=== PATIENT | male | born 1955 | race Caucasian/White ===

== ENCOUNTER 2018-02-13 10:00 | Outpatient (RCR) | payer MEDICAID, SELFPAY ==
--- NOTE | 2018-01-15 08:54 | AT_ITS ---
01/15/18 TPx1 Complete (R) shoulder girdle open and closed chain stabilization efforts when in aquatic environment see flow sheet for specifics. Pt requires remarkable amount of cueing for proper lower trap activation to reduce shoulder hiking and proper scap position. Majority of his exercises are modified today to encourage proper scap stabilization and motor control. Total Time: 45 minutes Direct Time: 20 minutes with pt being able to complete majority of his exercises with minimal supervision once instructed in proper technique.
--- NOTE | 2018-01-16 14:13 | PTTR_ITS ---
DATE: 01/16/18 SUBJECTIVE: Georgette apologizes for missing yesterday's appointment. States he has been compliant with his HEP, and he has also joined the [facility] to [facility] 6 days per week. OBJECTIVE: Has been in an aquatic program. He was instructed in his exercises to be performed independently now that he has joined the [employer]. I test his shoulder movements prior to mobilization, starting in the supine position with scapular jiggles, then external rotation, which continues to be hypo mobile and painful at end range. I can get him close to 60 while he is in the scaption plane today. Then worked on internal rotation and then forward elevation. Performed PNF patterns, PNF #1 through full range with light resistance and then PNF #2 mainly focusing on the lift component. I then place him in prone for rolling and gliding of the humeral head and then work on hyper extension. He does not get much more than 20 to 30 . Then forward elevation with his arm eventually on the plinth while he rests his forehead on his left forearm. Performed AA forward elevation, mainly assistive. This causes some supra humeral discomfort. I have him incorporate more active movements as tolerated. I then placed him in the closed pack position for flexion, abduction and external rotation while locking his fingers behind his head. Had him abduct and retract while I am apply a gentle posterior stress to the humeral head. to minimize stress to the anterior capsule, subscapularis area. Manual therapy: ([id number]). Direct treatment time: 30 min. He then sees Aleena Kee PTA for therapeutic exercise in the clinic. Refer to his flow sheets. Assessment: Slow but steady progress. Plan: Have Georgette monitor his response to today's session. He will continue to swim and do his other home exercises along with the jazmyne. He has follow up care early next week. Regan Dowell PNisa. DONTE/bishnu
--- NOTE | 2018-01-16 16:12 | PTTR_ITS ---
DATE: 01/16/18 OBJECTIVE: Co-treatment with primary therapist, Regan Dowell PT. Please see his note for specifics. Therapeutic procedures ([id number]). * [X] See flow sheet: Patient completed an open-chain shoulder strengthening and scapular stabilization program, as per flow sheet. * [X] Provided skilled instruction in proper exercise performance * [X] Provided skilled manual cues to facilitate proper muscle recruitment and/or movement pattern * [X] Other: Patient completed the remainder of his ther ex program under application trainer supervision. Direct treatment time: 30 minutes Total treatment time: 40 minutes
--- NOTE | 2018-01-20 11:17 | PTTR_ITS ---
DATE: 01/20/18 SUBJECTIVE: Georgette states he has been working hard in the pool, as well as stretching with the jazmyne and using the arm as much as possible. He is a little sore. OBJECTIVE: Was seen by Juanita Saeed PTA for therapeutic exercises prior to mobilization today. Manual therapy: ([id number]).he is a little more sore than usual. I work with stretching the inferior and posterior capsules and then work on ER, then IR and forward elevation. At end range of forward elevation, I perform deep tissue massage in the teres minor inferior capsule pec region with a slow prolonged stretch, and the PNF a1 and 2 patterns focusing in the L component at end range with D2 and through 3/4 of the range with a D1 pattern. I then have him in the side lying position and have him do some anti-gravity ER with the elbow tucked into the side. This is uncomfortable with end range, as well as his ab/ adduction with the arm at 90 degrees. He is unable to go through the full range due to discomfort. I then have in the prone position and have him dangle the arm , which gives him symptomatic relief. I stretch the anterior capsule with hyperextension while retracting the scapula, and then forward elevation while he is working on the side lying ER and flexion I have him try to work his lower traps to stabilize his scapula. With his shoulder at 90 degrees resting on the plinth with the elbow bent at 90, I have him work on some anti-gravity ER, etc... Direct treatment time: 30 min Total treatment time: 30 min Assessment: Little sore today from all of the activity and stretching, but tolerated it well. Plan: Have him monitor response to today's session. If he is getting more and more uncomfortable, he may have to back off on the intensity and frequency of his program. He has a follow-up appt later in the week. AROLDOW/endy
--- NOTE | 2018-01-20 11:40 | PTTR_ITS ---
DATE: 01/20/18 OBJECTIVE: Co Treatment with PT Regan Dowell Therapeutic procedures ([id number]). * X Provided skilled instruction in proper exercise performance: Pt completed UE strengthening, scapular stabilization, UE ROM, and the UBE for UE strengthening. Direct treatment time: 25 Total treatment time: 30
--- NOTE | 2018-01-22 08:14 | NT_ITS ---
01/22/18 Georgette no showed for todays scheduled appt.
--- NOTE | 2018-01-23 09:56 | PTTR_ITS ---
DATE: 01/23/18 OBJECTIVE: This was a co tx with PT Regan oDwell, please refer to his note for specifics. Therapeutic procedures ([id number]). Pt was seen by me for completion of a therapeutic exercise program consisting of UE strengthening activities, scap stabilization and cardiovascular exercise on the UBE. Pt was able to tolerate a slight increase in his program today but did require tactile and verbal cueing for correction of his mechanics throughout his session. Direct treatment time: 30 minutes Total treatment time: 30 minutes
--- NOTE | 2018-01-23 14:08 | PTTR_ITS ---
DATE: 01/23/18 SUBJECTIVE: Georgette states that he has been compliant with his HEP and been working hard. He biked on the [place] today for approximately 10 miles without problems. OBJECTIVE: Manual therapy: ([id number]). I begin with mobilizing him in the supine position with focus on rotation with the arm abducted at 90* and into the scaption plane. I then work on his IR and then forward elevation. PNF 1-2 patterns alternating isotonics and adding end range lift component on the D1 pattern. In the side lying position working on ER while he is locking his scapula into retraction and inferiorly. He is unable to lift his arm from his side up over head into the side lying position due to pain so we hold on that. I then have him in the prone position working on forward elevation AA having hold it isometrically at end range. Same thing with abduction. Direct treatment time: 30 minutes Total treatment time: 30 minutes and he is seen by Obdulia Saeed PTA and has a follow up appt early next week.
--- NOTE | 2018-01-27 10:00 | PTTR_ITS ---
DATE: 01/27/18 SUBJECTIVE: Georgette states he has been swimming on a regular basis, sometimes up to 4x a week. Feels that the buoyancy of the water helps him move his shoulder better, etc. . . He also continues to work with his pulleys, etc. . . Manual therapy: ([id number]). Treatment today consisted of aggressive mobilization in the supine position starting with ER, then IR and forward elevation. PNF I/II patterns alternating isotonics. In sidelying position consisting of anti-gravity ER and then abduction/adduction. In prone, rolling and gliding the humeral head and the stretching the anterior capsule with hyper extension, then abduction forward elevation AA, then close pack position of flexion/abduction, ER. Direct treatment time: 30 mins Total treatment time: 30 mins, with continued care with Obdulia Saeed PTA for his therex (see her note for specifics) Has a follow up later in the week. DLW/dl
--- NOTE | 2018-01-27 11:15 | PTTR_ITS ---
DATE: 01/27/18 OBJECTIVE: Co Treatment with Regan Dowell Therapeutic procedures (91509m4). * X Provided skilled instruction in proper exercise performance: Pt completed UE strengthening, scapular stabilization ther ex, ROM exercises, and the UBE for 8 min. Pt was able to tolerate a slight increase in his program today. Direct treatment time: 30 Total treatment time: 38
--- NOTE | 2018-01-30 10:30 | PTTR_ITS ---
DATE: 01/30/18 SUBJECTIVE: No new complaints. Manual therapy: ([id number]). Today's session consisted of mobilizing Georgette in supine starting with ER and IR and flexion, PNF 1 and 2 patterns, alternating isotonics, sidelying position with anti-gravity ER while locking in his scapular into retraction, then ab/adduction. His pure GH movement on the R now is approximately 60-65 degrees compared to 90- 100 on the L. He is able to place his R hand at about T12 level when reaching behind his back. Direct treatment time: 30 mins Total treatment time: 30 mins with continued care with Aleena Kee PTA for his Therex. Has a follow up early next week. DLW/dl
--- NOTE | 2018-01-30 11:51 | PTTR_ITS ---
DATE: 01/30/18 OBJECTIVE: Co-treatment with primary therapist, Regan Dowell PT. Please see his note for specifics. Therapeutic procedures ([id number]). * [X] See flow sheet: Patient completed an UE strengthening and scapular stabilization program with focus on improved ROM, as per flow sheet. Patient tolerated a slight progression in his program today, please see flow sheet for modifications made to reps and resistance. * [X] Provided skilled manual cues to facilitate proper muscle recruitment and/or movement pattern. * [X] Other: Patient completed the remainder of his ther ex program via [facility]. Direct treatment time: 30 minutes Total treatment time: 50 minutes
--- NOTE | 2018-02-02 11:30 | PTTR_ITS ---
DATE: 02/02/18 SUBJECTIVE: Georgette feels that he has made steady progress with his shoulder function compared to one month ago. He has intermittent discomfort throughout the R GH joint into the lateral aspect of the proximal humerus with weighted activity, particularly out to the side and overhead, and with end range movements. Manual therapy: ([id number]). Has a follow up appt with Dr. Castro one week from today. He has been attending PT 2x a week over the past 1 month. Prior to that he had been doing some traveling and only able to attend inconsistently. [place] 2 [place] starting in early Feb. ARTICULAR: His active R shoulder motion reveals good initiation of flexion/ abduction and associated with excessive scapular substitution at end range. It is limited to around 105 and 110 degrees, abduction is at 90 degrees, again with scapular substitution. His L thumb is at about the T8 level when reaching behind his back, R thumb 7 below. GH movement on the R is 60-70 degrees, compared to 90-95 on the L. His ER with elbow tucked into his side is approximately 20 degrees R, compared to 70 degrees on the L. AA in supine position with shoulder in scaption plane and abducted at 90 degrees , his ER is 45 degrees compared to 90-100 on the L. His IR is about 75 degrees. He has end range pain with each movement. He tolerates good resistance without pain to elbow flexion and forearm supination as well as ER. Assisted IR is a little weak with some discomfort, scaption/abduction in empty can position is also painful and weak. Session today consisted of his therapeutic exercises along with mobilization. Direct treatment time: 30 mins Total treatment time: 30 mins A: Making slow, but steady progress, not only with his ROM, but functionally. Still has significant limitation within a capsular pattern of flexion/abduction and external greater than internal rotation. P: Continue with his rehab until he heads out [place]. He is going to bring his jazmyne system along with his tubing exercises with him for stretching and strengthening. Has a follow up later in the week. DLW/dl
--- NOTE | 2018-02-02 11:42 | PTTR_ITS ---
DATE: 02/02/18 OBJECTIVE: Co treatment with Pt Regan Dowell Therapeutic procedures (18118a9). * X Provided skilled instruction in proper exercise performance: Pt completed UE strengthening, scapular stabilization ther ex as per flow sheet, and the UBE for cardio. Pt tolerated a slight increase in his program today. Direct treatment time: 30 Total treatment time: 40
--- NOTE | 2018-02-06 10:30 | PTTR_ITS ---
DATE: February 06, 2018 Manual therapy: ([id number]). Today's session consisted of mobilizing him in the supine position starting with ER, then combination of flexion/abduction in scaption plane, PNF I & II patterns alternating isotonics and finishing with IR. Then in sidelying when he externally rotates with his elbow tucked into his side, he is still getting a significant amount of scapular movement. I manually lock this in so he is working strictly at the GH joint. He still has pain when attempting to abduct in this position, so I then have him lie in the prone position with his arm dangling over the edge and have him do some rolling and gliding of the humeral head. I then place his forearm on my thigh so the shoulder is approximately 105-110 degrees and then AA work into forward elevation up to around 145, then have him try and hold this isometrically. Direct treatment time: 30 mins Total treatment time: 30 mins finishing with some Therex in clinic. I issue him a copy of his last note to hand deliver to his surgeon when he attends an appt next week. DLW/travon
--- NOTE | 2018-02-06 11:34 | PTTR_ITS ---
DATE: 02/06/18 OBJECTIVE: Co Treatment with PT Regan Dowell Therapeutic procedures ([id number]). * X Provided skilled instruction in proper exercise performance: Pt completed UE strengthening, scapular stabilization ther ex, and the UBE for cardio. Pt still requires assist with his B.O. shoulder abd due to weakness and compensation. Pt was able to tolerate a slight increase in his program today please see flow sheet for specifics. Direct treatment time: 35 Total treatment time: 45
--- NOTE | 2018-02-10 10:00 | PTTR_ITS ---
DATE: 02/10/18 SUBJECTIVE: Georgette states his appt went fine with Dr. Castro. He was happy with his progress thus far. Georgette is heading out west for 2 months, today is his last visit until then. He is bringing his pulleys for ROM as well as his strengthening exercises for shoulder girdle. I review these with him. Manual therapy: ([id number]). His active flexion/abduction is approximately 105 degrees with scapular substitution. His R thumb is at about the L1 level when reaching behind his back His AAROM in supine position, ER is close to 70 degrees in scaption plane and IR is 75-80 degrees, these are slow cautious movements. His forward elevation is 135-140. His pure GH movement is approximately 60 degrees on the R compared to 90 degrees on the L. I mobilize him in the supine position starting with scapular jiggles, then ER/ IR. Forward elevation, then PNF 1-2 patterns focusing in on the lift component with D2 and through full range on D1. I then work with him in sidelying, prone positions, A/AA. Direct treatment time: 30 mins Total treatment time: 30 mins, then seen by Obdulia Saeed PTA (see her note for specifics) A: Has made slow, but steady progress compared to 4 weeks ago. He still has a way to go though in regards to freeing up the GH joint. He has been compliant with his HEP and hopefully this will continue while he is away. P: Have Georgette continue with his HEP consisting of stretching in the frontal, sagittal planes with his jazmyne, as well as towel for his IR behind his back. S15 scapular stabilization exercises. He will contact me when he returns from his trip. DLW/dl
--- NOTE | 2018-02-10 13:00 | PTTR_ITS ---
DATE: 02/10/18 SUBJECTIVE: Pt reports that he is making progress with his strength and ROM. OBJECTIVE: Co Treatment with PT Regan Dowell Therapeutic procedures ([id number]). * X Provided skilled instruction in proper exercise performance: Pt completed UE strengthening, scapular stabilization ther ex, ROM activities, and the UBE for UE cardio. Pt completed a portion of his session with the wellness with Sophie Boucher Direct treatment time: 30 Total treatment time: 45
--- NOTE | 2018-02-13 11:14 | PTTR_ITS ---
DATE: 02/13/18 OBJECTIVE: Co Treatment with PT Regan Dowell Therapeutic procedures ([id number]). * X Provided skilled instruction in proper exercise performance: Pt completed UE strengthening, scapular stabilization ther ex, UE ROM, and cardio on the UBE. Pt was able to tolerate a slight increase in his program today without difficulty. Pt still requires assist with B.O. shoulder abd. Pt is going on vacation and will not be back till almost fall. Direct treatment time: 30 Total treatment time: 40
--- NOTE | 2018-02-13 13:30 | PTTR_ITS ---
DATE: 02/13/18 SUBJECTIVE: Georgette is in good spirits. Is looking forward to his trip.States that he has his pulleys and tubing packed and ready to use while he is gone. OBJECTIVE: Is heading out for 2 months. He has his HEP. I recently assessed his ROM movements; refer to the note. KX applied to all codes Manual therapy: (97962k6). He shows up late for his appt, so I only have 15 min. to work with him. I focus of mobilization of the shoulder girdle with emphasis on the GH joint in the supine and prone positions, along with PNF 1 and 2 patterns alternating isotonics. He was then seen by Juanita Saeed PTA for his therapeutic exercises. Assessment: Has made steady gains with his ROM and strength and function. Therefore, better function. He will be gone for 8 weeks and he has his home program. Plan: Encourage Georgette to continue with his home program on a daily basis on consisting of AAROM using the jazmyne mechanism and towel, along with strengthening exercises with his tubing and light weights. He will contact us when he returns from his trip. Direct treatment time: 15 min Total treatment time: 15 min DLW/endy
== END 2018-02-13 23:59 | disposition home or self-care (01) ==
LOC: PT 10:00
PROVIDERS: PCP Nurse Practitioner; Referring Provider Nurse Practitioner Family; Visit Provider Nurse Practitioner Family
DX: Z47.1 Aftercare following joint replacement surgery (principal); Z96.611 Presence of right artificial shoulder joint
CPT/HCPCS: 97110; 97140

== ENCOUNTER 2019-03-04 16:06 | Outpatient (CLI) | payer MEDICAID, SELFPAY | END 2019-03-04 16:26 | PROVIDERS: PCP Nurse Practitioner; Visit Provider Urology | DX: R36.1 Hematospermia (principal) | CPT/HCPCS: 36415; 84153 ==

== ENCOUNTER 2019-05-18 14:57 | Outpatient (CLI) | payer MEDICAID, SELFPAY ==
[2019-05-20 10:11] LABS: PSA, Diagnostic 5.1 ng/mL (0.0-4.5)
== END 2019-05-18 15:17 ==
PROVIDERS: PCP Nurse Practitioner; Visit Provider Urology
DX: R36.1 Hematospermia (principal)
CPT/HCPCS: 36415; 84153

== ENCOUNTER 2019-07-01 00:25 | Outpatient (CLI) | payer MEDICAID, SELFPAY ==
--- NOTE | 2019-07-01 12:40 | PROST_PTH ---
PATIENT: Georgette Mcdonald LOC: [facility] U#:[id number] AGE/SX: 64/M ROOM: RE07/01/[address]: Michael Suarez MD : [id number] BED: DIS: 07/01/2019 SPEC #: [id number] RECD: 07/01/19 17:04 STATUS: JOEL RELexii #: [id number] CLAUDETTE: 07/01/19 12:[address]: Michael Suarez DEPT: Surgical Specimen RECD BY: India Wilkins ENTERED: 07/01/19 17:06 SP TYPE: PROST OTHR DR: Rafia Blevins Tissues: 1 - PROSTATE NEEDLE BIOPSY 2 - PROSTATE NEEDLE BIOPSY 3 - PROSTATE NEEDLE BIOPSY 4 - PROSTATE NEEDLE BIOPSY 5 - PROSTATE NEEDLE BIOPSY 6 - PROSTATE NEEDLE BIOPSY 7 - PROSTATE NEEDLE BIOPSY 8 - PROSTATE NEEDLE BIOPSY 9 - PROSTATE NEEDLE BIOPSY 10 - PROSTATE NEEDLE BIOPSY 11 - PROSTATE NEEDLE BIOPSY 12 - PROSTATE NEEDLE BIOPSY Procedures: GROSS AND MICRO LEVEL 4 Comments: [id number]
--- NOTE | 2019-07-01 12:50 | DI.US_ITS ---
EXAM: US PROSTATE BIOPSY CLINICAL HISTORY: ELEVATED PSA, R97.20,HEMATOSPERMIA, ULTRASOUND GUIDED PROSTATE BIOPSY TECHNIQUE: Ultrasound performed using standard protocol. COMPARISON: No exams were available for comparison FINDINGS: Transrectal ultrasound was provided for Dr. Suarez for ultrasound-guided prostate biopsy. Prostate me asured a volume of 74 cc. Please see procedure note for details.
--- NOTE | 2019-07-01 13:24 | ROE_ITS ---
PROCEDURE NOTE DATE OF PROCEDURE July 01, 2019 PREPROCEDURE DIAGNOSIS Elevated PSA. POSTPROCEDURE DIAGNOSES Elevated PSA. PROCEDURE Ultrasound-guided biopsy of the prostate. SURGEON Michael Suarez M.D. ANESTHESIA Local. COMPLICATIONS None. HISTORY This is a 64-year-old gentleman who has a history of persistent hematospermia. He was also found to h ave an elevated PSA of 5.1 ng/ml. He presents now for ultrasound-guided biopsy of the prostate. PROCEDURE The patient was brought to the Radiology Suite on 07/01/2019. He was placed in the left lateral positi on. Transrectal imaging of the prostate was performed using a variable megahertz transducer. The prostate was imaged in transverse and longitudinal planes. The prosthetic volume was approximately 74 cc. The transition zone was markedly enlarged and compress ed the peripheral zone. No specific abnormalities were seen in the peripheral zone. A periprostatic nerve block was performed using 1% lidocaine without epinephrine. A total of 12 late rally directed biopsies were than taken and sent to Pathology for permanent section. Each biopsy was labeled individually. The patient tolerated the procedure well with no complications. He will follow up in one week to juice garcia his surgical pathology.
== END 2019-07-01 00:45 ==
PROVIDERS: PCP Nurse Practitioner; Visit Provider Urology
DX: C61 Malignant neoplasm of prostate (principal); R97.20 Elevated prostate specific antigen [PSA]; N41.1 Chronic prostatitis; R36.1 Hematospermia
CPT/HCPCS: 55700; 76942; 76872; 88305

== ENCOUNTER 2019-08-17 15:41 | Outpatient (CLI) | payer MEDICAID, SELFPAY ==
[2019-08-18 10:23] LABS: PSA, Diagnostic 4.9 ng/mL (0.0-4.5)
== END 2019-08-17 16:01 ==
PROVIDERS: PCP Nurse Practitioner; Visit Provider Urology
DX: C61 Malignant neoplasm of prostate (principal)
CPT/HCPCS: 36415; 84153

== ENCOUNTER 2019-12-27 09:29 | Outpatient (CLI) | payer MEDICAID, SELFPAY ==
[2020-01-01 06:51] LABS: SARS-CoV-2 RNA Undetected (Undetected); SARS-CoV-2 Specimen Source Nasopharynx
== END 2019-12-27 09:49 ==
PROVIDERS: PCP Nurse Practitioner; Visit Provider Nurse Practitioner Family
DX: Z11.59 Encounter for screening for other viral diseases (principal)
CPT/HCPCS: U0003

== ENCOUNTER 2020-05-15 16:29 | Outpatient (REF) | payer MEDICAID, SELFPAY ==
[2020-05-17 13:43] LABS: Patient Race White; SARS-CoV-2 RNA Undetected (Undetected); SARS-CoV-2 Specimen Source Nasal
== END 2020-05-15 16:49 ==
LOC: NCHCN 16:29
PROVIDERS: PCP Nurse Practitioner; Visit Provider Nurse Practitioner Family
DX: Z20.828 Contact with and (suspected) exposure to other viral communicable diseases (principal)
CPT/HCPCS: U0003

== ENCOUNTER 2020-09-15 17:53 | Outpatient (REF) | payer MEDICAID, SELFPAY ==
[2020-09-15 19:55] LABS: Abs Immature Grans 0.01 10^3/uL (0.0-0.06); Absolute Basophil Count 0.05 10^3/uL (0.0-0.2); Absolute Eosinophil Count 0.12 10^3/uL (0.0-0.7); Absolute Lymphocyte Count 2.36 10^3/uL (1.2-3.4); Absolute Monocyte Count 0.42 10^3/uL (0.1-0.8); Absolute Neutrophil Count 3.65 10^3/uL (1.2-6.7); Basophils % 0.8; Eosinophils % 1.8; HCT 39.3 % (40.0-50.0); HGB 12.8 g/dL (13.5-17.5); Immature Grans % 0.2; Lymphocytes % 35.7; MCH 29.8 pg (27.0-33.0); MCHC 32.6 % (32.0-36.0); MCV 91.4 fL (80-95); Monocytes % 6.4; Neutrophils % 55.1; Nucleated RBC 0 %; RDW 13.7 % (11.8-14.1); RDW-SD 46.5 fL; WBC 6.61 10^3/uL (4.4-10.8)
[2020-09-15 20:05] LABS: ALT 26 U/L (16-63); AST 21 U/L (15-37); Albumin 3.9 g/dL (3.4-5.0); Alkaline Phosphatase 61 U/L (46-116); Anion Gap 8.1 mmol/L (3-11); BUN 15 mg/dL (7-18); Bilirubin, Total 0.5 mg/dL (0.2-1.0); CO2 27.9 mmol/L (21.0-32.0); CREATININE 0.9 mg/dL (0.70-1.30); Calcium 9.5 mg/dL (8.5-10.1); Chloride 104 mmol/L (98-107); Glucose 104 mg/dL (74-106); Potassium 4.7 mmol/L (3.5-5.1); Sodium 140 mmol/L (136-145); Total Protein 7.4 g/dL (6.4-8.2)
[2020-09-15 20:22] LABS: Diff Comment PLT Morph Reviewed; RBC Morphology Normal
== END 2020-09-15 17:54 | disposition home or self-care (01) ==
LOC: NCHCN 17:53
PROVIDERS: PCP Nurse Practitioner; Visit Provider Family Medicine
DX: A08.8 Other specified intestinal infections (principal)
CPT/HCPCS: 80053; 85025

== ENCOUNTER 2020-09-16 11:55 | Outpatient (REF) | payer MEDICAID, SELFPAY | END 2020-09-16 11:56 | disposition home or self-care (01) | LOC: NCHCN 11:55 | PROVIDERS: PCP Nurse Practitioner; Visit Provider Family Medicine | DX: A08.8 Other specified intestinal infections (principal) | CPT/HCPCS: 87329; 83630; 87177 ==

== ENCOUNTER 2021-08-01 15:53 | Outpatient (REF) | payer MEDICAID, SELFPAY ==
[2021-08-01 23:13] LABS: PSA, Diagnostic 7.1 ng/mL (0.0-4.5)
== END 2021-08-01 15:54 | disposition home or self-care (01) ==
LOC: LBN 15:53
PROVIDERS: PCP Nurse Practitioner Family; Visit Provider Nurse Practitioner Gerontology
DX: C61 Malignant neoplasm of prostate (principal); R97.20 Elevated prostate specific antigen [PSA]
CPT/HCPCS: 84153

== ENCOUNTER 2021-08-15 00:47 | Outpatient (CLI) | payer MEDICAID, SELFPAY ==
--- NOTE | 2021-08-15 15:18 | DI.RAD_ITS ---
Exam(s) XR HIP RT COMPLETE AP PELVIS EXAM: XR HIP RT COMPLETE AP PELVIS CLINICAL HISTORY: RT LEG PAIN, M79.604 TECHNIQUE: COMPARISON: No exams were available for comparison FINDINGS: Four views were obtained. There is moderate thinning of the cartilaginous joint space of the right h ip. There are moderate marginal osteophytes of femoral head and acetabulum. There are subchondral c ysts of the femoral head and acetabulum and mild subchondral sclerosis of the bones is also noted. Note is also made of some thinning of the cartilaginous joint space of the left hip with mild margina l osteophytes and subchondral sclerosis of the acetabulum. Mild DJD of the SI joints also noted and there are degenerative changes of the lower lumbar spine. IMPRESSION: Moderate to severe DJD right hip. Additional findings as above. RADIATION DOSE DELIVERED: Total DLP
== END 2021-08-15 01:07 ==
PROVIDERS: PCP Nurse Practitioner Family; Visit Provider Nurse Practitioner Family
DX: M16.11 Unilateral primary osteoarthritis, right hip (principal); M79.604 Pain in right leg
CPT/HCPCS: 73502

== ENCOUNTER 2021-08-15 10:20 | Outpatient (REF) | payer MEDICAID, SELFPAY ==
[2021-08-15 14:00] LABS: HGB 13.6 g/dL (13.5-17.5); MCH 29.7 pg (27.0-33.0); MCHC 32.4 % (32.0-36.0); MCV 91.7 fL (80-95); MPV 11.1 fL (8.0-11.0); Platelet Count 256 10^3/uL (130-400); RBC 4.58 10^6/uL (4.36-5.78); RDW 13.4 % (11.8-14.1); RDW-SD 45.8 fL; WBC 8.92 10^3/uL (4.4-10.8)
[2021-08-15 14:26] LABS: ALT 28 U/L (16-63); AST 12 U/L (15-37); Albumin 4.2 g/dL (3.4-5.0); Alkaline Phosphatase 65 U/L (46-116); BUN 20 mg/dL (7-18); Bilirubin, Total 0.4 mg/dL (0.2-1.0); CREATININE 1.1 mg/dL (0.70-1.30); Calcium 9.4 mg/dL (8.5-10.1); Calculated LDL 141 mg/dL (<100); Chloride 104 mmol/L (98-107); Cholesterol 236 mg/dL (<200); Glucose 91 mg/dL (74-106); HDL Cholesterol 62 mg/dL (40-60); Potassium 4.7 mmol/L (3.5-5.1); Sodium 141 mmol/L (136-145); Total Protein 7.7 g/dL (6.4-8.2); Triglyceride 169 mg/dL (<150)
== END 2021-08-15 10:21 | disposition home or self-care (01) ==
LOC: NCHCN 10:20
PROVIDERS: PCP Nurse Practitioner Family; Visit Provider Nurse Practitioner Family
DX: E78.5 Hyperlipidemia, unspecified (principal); C61 Malignant neoplasm of prostate; R00.2 Palpitations
CPT/HCPCS: 80053; 80061; 85027

== ENCOUNTER 2022-02-14 05:07 | Outpatient (CLI) | payer MEDICAID, SELFPAY ==
[2022-02-15 15:05] LABS: PSA, Diagnostic 6.6 ng/mL (<=4.5)
== END 2022-02-14 05:08 | disposition home or self-care (01) ==
LOC: LBO 05:08
PROVIDERS: PCP Nurse Practitioner Family; Visit Provider Nurse Practitioner Gerontology
DX: C61 Malignant neoplasm of prostate (principal)
CPT/HCPCS: 36415; 84153

== ENCOUNTER 2022-04-08 13:02 | Outpatient (REF) | payer MEDICAID, SELFPAY ==
[2022-04-08 15:09] LABS: HCT 38.1 % (40.0-50.0); HGB 12.9 g/dL (13.5-17.5); MCH 30.2 pg (27.0-33.0); MCHC 33.9 % (32.0-36.0); MCV 89 fL (80-95); MPV 11.1 fL (8.0-11.0); Platelet Count 257 10^3/uL (130-400); RBC 4.27 10^6/uL (4.36-5.78); RDW-SD 45.8 fL
[2022-04-08 15:29] LABS: Anion Gap 8.7 mmol/L (3-11); BUN 20 mg/dL (7-18); CO2 26.3 mmol/L (21.0-32.0); CREATININE 1.2 mg/dL (0.70-1.30); Calcium 9.1 mg/dL (8.5-10.1); Chloride 103 mmol/L (98-107); Estimated GFR 66.28 (mL/min/1.73m2); Glucose 128 mg/dL (74-106); Potassium 4.2 mmol/L (3.5-5.1); Sodium 138 mmol/L (136-145)
== END 2022-04-08 13:03 | disposition home or self-care (01) ==
LOC: NCHCN 13:02
PROVIDERS: PCP Nurse Practitioner Family; Visit Provider Family Medicine
DX: Z01.818 Encounter for other preprocedural examination (principal)
CPT/HCPCS: 80048; 85027

== ENCOUNTER 2022-06-06 10:46 | Outpatient (REF) | payer MEDICAID, SELFPAY ==
[2022-06-06 20:38] LABS: PSA, Diagnostic 9.8 ng/mL (<=4.5)
== END 2022-06-06 10:47 | disposition home or self-care (01) ==
LOC: LBN 10:46
PROVIDERS: PCP Nurse Practitioner Family; Visit Provider Urology
DX: C61 Malignant neoplasm of prostate (principal)
CPT/HCPCS: 84153

== ENCOUNTER 2022-10-07 14:14 | Outpatient (CLI) | payer MEDICAID, SELFPAY ==
--- NOTE | 2022-10-07 | DI.RAD_ITS ---
Exam(s) XR KNEE LT 3V AP,LAT,AALIYAH EXAM: XR KNEE LT 3V AP,LAT,AALIYAH CLINICAL HISTORY: KNEE PAIN, BILAT M25.569. TECHNIQUE: 2D digital imaging was performed of the left knee. Three images were obtained. Merchant ,AP, lateral and PA tunnel views were obtained. COMPARISON: CR XR KNEE RT 3V AP,LAT,AALIYAH from 10/07/2022 FINDINGS: BONES: No acute fracture is present. No bony destructive lesion is seen. JOINTS: The knee is normally aligned. There are moderate degenerative changes of the knee involving a ll 3 joint compartments characterized by joint space narrowing and periarticular spurring. There is a small suprapatellar joint effusion. There is chondrocalcinosis in the femoral tibial joint. SOFT TISSUE: Normal. IMPRESSION: Osteoarthritis of the left knee. DATA REPOSITORY: RADIATION DOSE DELIVERED:
--- NOTE | 2022-10-07 | DI.RAD_ITS ---
Exam(s) XR KNEE RT 3V AP,LAT,AALIYAH EXAM: XR KNEE RT 3V AP,LAT,AALIYAH CLINICAL HISTORY: BILAT KNEE PAIN, M25.569. TECHNIQUE: 2D digital imaging was performed of the right knee. Five views obtained. Merchant, AP, la teral and PA tunnel views were obtained. COMPARISON: No exams were available for comparison FINDINGS: BONES: No acute fracture is present. No bony destructive lesion is seen. JOINTS: The knee is normally aligned. Iakt-ec-pufwcrka degenerative changes are seen in the knee invo lving all 3 joint compartments characterized by joint space narrowing and periarticular spurring. Th ere does appear to be a small suprapatellar joint effusion. Chondrocalcinosis is seen in the femoral tibial joint. SOFT TISSUE: Normal. IMPRESSION: Nizm-kz-vhfziipt degenerative changes of the right knee. DATA REPOSITORY: RADIATION DOSE DELIVERED:
--- OUTSIDE RECORDS SUMMARY | 2022-10-07 14:17 | XMS_ITS | Continuity of Care Document ---
Author Name Unknown Organization [facility] Address [address] [place] [address] Encounter [facility] NBR [id number] Date(s): 05/22/22 - 05/22/22 [facility] [address] [place] [address] us Encounter Diagnosis S/P total hip arthroplasty(Discharge Diagnosis) - 05/22/22 Discharge Disposition: Home or Self Care Attending Physician: Kanika Diamond BEVERAGE SERVER, Allergies, Adverse Reactions, Alerts Substance Reaction Severity Status penicillin as child Moderate Active penicillins Severe Active Assessment and Plan Future Appointments Functional Status 05/22/22 Other exposure to Infectious Disease Non e Medications !-Winthrop 5 mg-325 mg oral tablet See Instructions, PRN as needed for pain, 1 -2 tab Oral every 4 hr, # 50 cap, 0 Refill(s), Pharmacy: [facility], 190.5, cm, 04/29/22 8:31:00 EST, Height/Length Dosing, 81.65, kg, 04/29/22 8:31:00 EST, Weight Dosing Start Date: 05/07/22 Status: Ordered AAA - Misc Prescription 50 EA, 0 Refill(s) Start Date: 05/22/22 Status: Ordered aspirin 325 mg oral delayed release tablet 84 EA, 0 Refill(s) Start Date: 05/22/22 Status: Ordered celecoxib 200 mg oral capsule 200 mg = 1 cap, Oral, BID, # 28 cap, 0 Refill(s), Pharmacy: [facility], 190.5, cm, 04/29/22 8:31:00 EST, Height/Length Dosing, 81.65, kg, 04/29/22 8:31:00 EST, Weight Dosing Start Date: 05/06/22 Stop Date: 05/20/22 Status: Ordered Ecotrin 325 mg oral delayed release tablet 325 mg = 1 tab, Oral, BID, # 84 tab, 0 Refill(s), Pharmacy: [facility], 190.5, cm, 04/29/22 8:31:00 EST, Height/Length Dosing, 81.65, kg, 04/29/22 8:31:00 EST, Weight Dosing Start Date: 05/06/22 Stop Date: 06/17/22 Status: Ordered HYDROcodone-acetaminophen 5 mg-325 mg oral tablet 50 EA, TAKE ONE TO TWO TABLETS BY MOUTH EVERY 4 HOURS NEEDED FOR PAIN, 0 Refill(s) Start Date: 05/22/22 Status: Ordered MiraLax oral powder for reconstitution 17 g, Oral, Daily, # 238 g, 0 Refill(s), Pharmacy: [facility], 190.5, cm, 04/29/22 8:31:00 EST, Height/Length Dosing, 81.65, kg, 04/29/22 8:31:00 EST, Weight Dosing Start Date: 05/06/22 Status: Ordered [id number] oral powder for reconstitution 238 unknown unit, 0 Refill(s) Start Date: 05/22/22 Status: Ordered Tylenol 8 HR Arthritis Pain 650 mg oral tablet, extended release 650 mg = 1 tab, Oral, every 8 hr, # 50 tab, 0 Refill(s), Pharmacy: [facility], 190.5, cm, 04/29/22 8:31:00 EST, Height/Length Dosing, 81.65, kg, 04/29/22 8:31:00 EST, Weight Dosing Start Date: 05/06/22 Status: Ordered Problem List Condition Confirmation Course Effective Dates Status H ealth Status Informant Colonic polyp Confirmed Active Dentures 1 Confirmed Active Disorder of rotator cuff Confirmed Active Headache Confirmed Active Heart murmur Confirmed Active History of COVID-19 2 Confirmed Active History of operative procedure on shoulder Confirmed Active Numbness of foot 3 Confirmed Active Osteoarthritis of glenohumeral joint Confirmed Active Primary coxarthrosis, bilateral Confirmed Active 1pt with upper and lower dentures 2mild sx's 3bilat Procedures Procedure Date Related Diagnosis Body Site Status Arthroplasty Anterior Hip (Right) 1 05/06/22 Completed Arthroplasty of right shoulder Completed Colonoscopy Completed Dental operation Complete d 1auto-populated from documented surgical case Vital Signs Most recent to oldest [Reference Range]: 1 Peripheral Pulse Rate [60-100 bpm] 68 bp m (05/22/22 1:01 PM) Blood Pressure [90-140/60-90 mmHg] 138/6 5mmHg (05/22/22 1:01 PM) Weight 81.65 kg (05/22/22 1:01 PM) Weight Measured (lbs) 180.007 lb (05/22/22 1:01 PM) Height 190.5 cm (05/22/22 1:01 PM) Height/Length Measured (inches) 75 inch (05/22/22 1:01 PM) BSA Measured 2.08 m2 (05/22/22 1:01 PM) Body Mass Index 22.5 kg/m2 (05/22/22 1:01 PM) Social History Social History Type Response Tobacco Current everyday tob acco user Tobacco Use:. 1 cigarette per day per day. Sex Male Implantable Device List Procedure Provider Procedure Date Device Type Site Arthroplasty, acetabular and proximal femoral prosthetic replacement (total hip arthroplasty), with or without autograft or allograft Phuc Nunez DO 05/06/22 Non Biological Hip R Device Identifier Serial Number Lot or Batch Number Manufacturing Date Expiration Date Distinct Identification Code MRI Safety Implantable Status Assigning Authority Unknown Unknown [id number] Unknown 08/11/30 Unknown Unknown Active Unknown Unknown Unknown [id number] Unknown 02/06/27 Unknown Unknown Active Unknown Unknown Unknown [id number] Unknown 10/14/31 Unknown Unknown Active Unknown Unknown Unknown [id number] Unknown Unknown Unknown Unknown Active [facility] Hospital Discharge Instructions Follow Up Care 05/08/2022 12:12:21 With:Phuc Nunez DO Address: [address] [place] [id number] When:Within 4 Week(s) Comments:6 WEEK F/U S/P R MARISELA (X-RAY FIRST) Physician Outpatient Note * Kanika Diamond APRN,: PERFORM Event Display: Office Clinic Note Physician Authored Date: [id number] GEORGETTE RAO :1955 Age:67 years Sex:Male Visit Date:05/22/2022 Chief Complaint right total hip History of Present Illness Georgette is a pleasant 67-year-old man??who is about 2 weeks status post??right total hip arthroplasty, outpatient. ??He states he is doing very well. ??He is noticing daily improvements.?? He has been going to physical therapy. ??Has had no chest pain or shortness of breath. ??No fever or chills.?? He stopped taking his aspirin a few days ago.?? He has not required narcotic pain medication, but has been using Tylenol as needed.?? He is planning a cross-country drive, wonders when he would be able to do this. Review of Systems Improving right hip pain Otherwise negative ROS Physical Exam Vitals & Measurements HR:??68??(Peripheral)?? BP:??138/65?? SpO2:??98%?? HT:??190.5??cm?? WT:??81.65??kg?? BMI:??22.5?? Pain Score:??5?? BSA:??2.08?? The patient is alert and oriented x3. ??Very pleasant. ??No acute distress. ??He appears stated ageand is well-nourished and well-developed. ??Pleasant and cooperative. ??Well-dressed and well-groomed. ??Examination of the right hip reveals an anterior incision that is healing nicely.?? It is clean, dry and intact. ??No signs or symptoms of infection. ??Gentle range of motion of the hip is without discomfort. ??Thigh and calf compartments are soft and nontender. ??The right lower extremity is neurovascularly intact distally. Assessment/Plan 1.??S/P total hip arthroplasty??Z96.649 Georgette is a very pleasant 67-year-old man who is doing well about 2 weeks out from right total hip arthroplasty, outpatient.?? He stopped his aspirin several days ago, he understands he needs to resume this as soon as possible and he will continue it for 6 weeks. ??He understands what this is for DVT prophylaxis.?? He will continue with physical therapy and his home exercise program. ??I have recommended that he avoid his cross-country travel??until he is at least 6 weeks postop.?I have also recommended that he take??aspirin??during this trip.?? He verbalizes understanding.?? He will return to the office in about a month to see Dr. Nunez for follow-up with x-ray.?? He is in agreement with the above plan. ??He is encouraged to contact the office anytime with questions or concerns. Follow Up Instructions With When Contact Information Phuc Nunez, DO In 4 weeks [address] [place] [address] Additional Instructions: 6 WEEK F/U S/P R MARISELA (X-RAY FIRST) Problem List/Past Medical History Ongoing Colonic polyp Dentures Disorder of rotator cuff Headache Heart murmur History of COVID-19 History of operative procedure on shoulder Numbness of foot Osteoarthritis of glenohumeral joint Primary coxarthrosis, bilateral Historical No qualifying data Procedure/Surgical History ???Arthroplasty Anterior Hip (Right) (05/06/2022)???Arthroplasty of right shoulder???Colonoscopy???Dental operation Medications !-Winthrop 5 mg-325 mg oral tablet, See Instructions, PRN AAA - Misc Prescription aspirin 325 mg oral delayed release tablet celecoxib 200 mg oral capsule, 200 mg= 1 cap, Oral, BID Ecotrin 325 mg oral delayed release tablet, 325 mg= 1 tab, Oral, BID HYDROcodone-acetaminophen 5 mg-325 mg oral tablet MiraLax oral powder for reconstitution, 17 g, Oral, Daily [id number] oral powder for reconstitution Tylenol 8 HR Arthritis Pain 650 mg oral tablet, extended release, 650 mg= 1 tab, Oral, every 8 hr Allergies penicillins penicillin??(as child) Social History Alcohol Current, Beer, 1-2 times per month Electronic Cigarette/Vaping Electronic Cigarette Use: Never. Substance Use Never Tobacco Current everyday tobacco user Tobacco Use:. 1 cigarette per day per day. Electronically Signed on 05/22/22 01:24 PM Kanika Diamond APRN
--- OUTSIDE RECORDS SUMMARY | 2022-10-07 14:17 | XMS_ITS | Continuity of Care Document ---
Author Name Unknown Organization [facility] Address [address] [place] [address] Encounter [facility] NBR [id number] Date(s): 06/26/22 - 06/26/22 [facility] [address] [place], [place] [address] Encounter Diagnosis S/P total right hip arthroplasty(Discharge Diagnosis) - 06/26/22 Discharge Disposition: Home or Self Care Attending Physician: Phuc Nunez DO Allergies, Adverse Reactions, Alerts Substance Reaction Severity Status penicillin as child Moderate Active penicillins Severe Active Functional Status 06/26/22 Other exposure to Infectious Disease Non e Medications !-Bantry 5 mg-325 mg oral tablet See Instructions, PRN as needed for pain, 1 -2 tab Oral every 4 hr, # 50 cap, 0 Refill(s), Pharmacy: [facility] #[facility], 190.5, cm, 04/29/22 8:31:00 EST, Height/Length [...] BID, # 28 cap, 0 Refill(s), Pharmacy: [facility], 190.5, cm, 04/29/22 8:31:00 EST, Height/Length Dosing, 81.65, kg, 04/29/22 8:31:00 EST, Weight Dosing Start Date: 05/06/22 Stop Date: 05/20/22 Status: Ordered Ecotrin 325 mg oral delayed release tablet 325 mg = 1 tab, Oral, BID, # 84 tab, 0 Refill(s), Pharmacy: [facility], 190.5, cm, 04/29/22 8:31:00 EST, [...] Daily, # 238 g, 0 Refill(s), Pharmacy: [facility], 190.5, cm, 04/29/22 8:31:00 EST, Height/Length Dosing, 81.65, kg, 04/29/22 8:31:00 EST, Weight Dosing Start Date: 05/06/22 Status: Ordered [id number] oral powder for reconstitution 238 unknown unit, 0 Refill(s) Start Date: 05/22/22 Status: Ordered Tylenol 8 HR Arthritis Pain 650 mg oral tablet, extended release 650 mg = 1 tab, Oral, every 8 hr, # 50 tab, 0 Refill(s), Pharmacy: [facility], 190.5, cm, 04/29/22 8:31:00 EST, [...] Range]: 1 Peripheral Pulse Rate [60-100 bpm] 69 bp m (06/26/22 1:01 PM) Blood Pressure [90-140/60-90 mmHg] 130/6 8mmHg (06/26/22 1:01 PM) Weight 81.65 kg (06/26/22 1:01 PM) Weight Measured (lbs) 180.007 lb (06/26/22 1:01 PM) Height 190.5 cm (06/26/22 1:01 PM) Height/Length Measured (inches) 75 inch (06/26/22 1:01 PM) BSA Measured 2.08 m2 (06/26/22 1:01 PM) Body Mass Index 22.5 kg/m2 (06/26/22 1:01 PM) Social History Social History Type [...] Safety Implantable Status Assigning Authority Unknown Unknown [id number] Unknown 08/11/30 Unknown Unknown Active Unknown Unknown Unknown [id number] Unknown 02/06/27 Unknown Unknown Active Unknown Unknown Unknown [id number] Unknown 10/14/31 Unknown Unknown Active Unknown Unknown Unknown [id number] Unknown Unknown Unknown Unknown Active [facility] nown Physician Outpatient Note * Phuc Nunez, DO: PERFORM Event Display: Office Clinic Note Physician Authored Date: [id number] [place] RAO :1955 Age:67 years Sex:Male Visit Date:06/26/2022 Chief Complaint s/p right total hip arthroplasty History of Present Illness Next week status post right anterior total hip??doing well. Physical Exam Vitals & Measurements HR:??69??(Peripheral)?? BP:??130/68?? SpO2:??97%?? HT:??190.5??cm?? WT:??81.65??kg?? BMI:??22.5?? Pain Score:??3?? BSA:??2.08?? Ambulates into the office with a normal gait unassisted. ??Right anterior wound nicely healed. ??Nosigns of infection.?? No femoral sensory nerve palsy. ??Range of motion free and easy and stable.??X-rays of the right hip??reviewed on the [employer] system today??demonstrate the hardware in unchanged alignment with no signs of loosening or settling. Assessment/Plan S/P total right hip arthroplasty??Z96.641 Finish up physical therapy. ??Progress activity as as tolerated. ??Dental prophylaxis reviewed. Problem List/Past Medical History Ongoing Colonic polyp Dentures Disorder of rotator cuff Headache Heart murmur History of COVID-19 History of operative procedure on shoulder Numbness of foot Osteoarthritis of glenohumeral joint Primary coxarthrosis, bilateral Historical No qualifying data Medications !-Bantry 5 mg-325 mg oral tablet, See Instructions, PRN AAA - Misc Prescription aspirin 325 mg oral delayed release tablet celecoxib 200 mg oral capsule, 200 mg= 1 cap, Oral, BID Ecotrin 325 mg oral delayed release tablet, 325 mg= 1 tab, Oral, BID HYDROcodone-acetaminophen 5 mg-325 mg oral tablet MiraLax oral powder for reconstitution, 17 g, Oral, Daily [id number] oral powder for reconstitution Tylenol 8 HR Arthritis Pain 650 mg oral tablet, extended release, 650 mg= 1 tab, Oral, every 8 hr Allergies penicillins penicillin??(as child) Electronically Signed on 06/26/22 01:24 PM Phuc Nunez, DO
--- OUTSIDE RECORDS SUMMARY | 2022-10-07 14:17 | XMS_ITS | Continuity of Care Document ---
Author Name Unknown Organization [facility] Address [address] [place] [address] Encounter [facility] NBR [id number] Date(s): 05/06/22 - 05/06/22 [facility] [address] [place], [place] [address] Discharge Disposition: Home or Self Care Attending Physician: Phuc Nunez DO Admitting Physician: Phuc Nunez DO Referring Physician: Phuc Nunez DO Allergies, Adverse Reactions, Alerts Substance Reaction Severity Status penicillins Severe Active Assessment and Plan Future Appointments Functional Status 05/06/22 Living Environment Home Environment No qualifying data available Lives In Multilevel home Lives With Spouse Living Situation Home independently Patient's Responsibilities Rehab Communi ty mobility, 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, 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, Home management, Personal ADL, Social participation Number of Stairs Inside 10 Prior ADL Status Independent Prior Mobility Status Independent Prior Instrumental ADL Level Independent Prior Cognitive-Communication Skills Ind ependent 05/06/22 ADLs Independent Recent Travel History No recent travel Other exposure to Infectious Disease Non e Medications !-[place] 5 mg-325 mg oral tablet See Instructions, PRN as needed for pain, 1 -2 tab Oral every 4 hr, # 50 cap, 0 Refill(s), Pharmacy: [facility] #[facility], 190.5, cm, 04/29/22 8:31:00 EST, Height/Length Dosing, 81.65, kg, 04/29/22 8:31:00 EST, Weight Dosing Start Date: 05/07/22 Status: Ordered celecoxib 200 mg oral capsule 200 mg = 1 cap, Oral, BID, # 28 cap, 0 Refill(s), Pharmacy: [facility], 190.5, cm, 04/29/22 8:31:00 EST, Height/Length Dosing, 81.65, kg, 04/29/22 8:31:00 EST, Weight Dosing Start Date: 05/06/22 Stop Date: 05/20/22 Status: Ordered Ecotrin 325 mg oral delayed release tablet 325 mg = 1 tab, Oral, BID, # 84 tab, 0 Refill(s), Pharmacy: [facility], 190.5, cm, 04/29/22 8:31:00 EST, Height/Length Dosing, 81.65, kg, 04/29/22 8:31:00 EST, Weight Dosing Start Date: 05/06/22 Stop Date: 06/17/22 Status: Ordered MiraLax oral powder for reconstitution 17 g, Oral, Daily, # 238 g, 0 Refill(s), Pharmacy: [facility], 190.5, cm, 04/29/22 8:31:00 EST, Height/Length Dosing, 81.65, kg, 04/29/22 8:31:00 EST, Weight Dosing Start Date: 05/06/22 Status: Ordered Tylenol 8 HR Arthritis Pain 650 mg oral tablet, extended release 650 mg = 1 tab, Oral, every 8 hr, # 50 tab, 0 Refill(s), Pharmacy: [facility], 190.5, cm, 04/29/22 8:31:00 EST, Height/Length Dosing, 81.65, kg, 04/29/22 8:31:00 EST, Weight Dosing Start Date: 05/06/22 Status: Ordered Problem List Condition Confirmation Course Effective Dates Status Health St atus Informant Colonic polyp Confirmed Active Dentures 1 Confirmed Active Headache Confirmed Active Heart murmur Confirmed Active History of COVID-19 2 Confirmed Active Numbness of foot 3 Confirmed Active 1pt with upper and lower dentures 2mild sx's 3bilat Procedures Procedure Date Related Diagnosis Body Site Status Arthroplasty Anterior Hip (Right) 1 05/06/22 Completed Arthroplasty of right shoulder Completed Colonoscopy Completed Dental operation Complete d 1auto-populated from documented surgical case Results Radiology Reports * Exam Date Time Procedure Performing Provider Status 05/06/22 3:11 PM XR Hip 2-3 Views w/A P Pelvis Right Lucina Blake; Arnold (Verified) Notes: (XR Hip 2-3 Views w/AP Pelvis Right) Reason For Exam: right ATHA XR Hip 2-3 Views w/AP Pelvis Right PROCEDURE INFORMATION: Exam: XR Right Hip Exam date and time: 05/06/2022 3:02 PM Age: 67 years old Clinical indication: Screening exam; Post-op apryl; Prior surgery; Surgery date: Post-operative (0-2 days); Additional info: Right atha TECHNIQUE: Imaging protocol: Radiologic exam of the Right hip. Views: 2 or 3 views hip with pelvis when performed. COMPARISON: CR XR HIP RIGHT W PELVIS 05/06/2022 1:53 PM FINDINGS: Bones/joints: Unremarkable postoperative appearance of the right hip in the setting of arthroplasty. Anatomic alignment. Soft tissues: Postoperative subcutaneous emphysema. IMPRESSION: Unremarkable postoperative appearance of the right hip in the setting of arthroplasty. THIS DOCUMENT HAS BEEN ELECTRONICALLY SIGNED BY ALON LOPEZ MD on 05/06/2022 04:28 PM Final Signed by: Alon Lopez MD Signed (Electronic Signature): 05/06/2022 4:28 pm Vital Signs Most recent to oldest [Reference Range]: 1 2 3 Temperature Temporal Artery [36-38 Deg C] 35.8 Deg C *LOW* (05/06/22 6:50 PM) 36 Deg C (05/06/22 2:51 PM) 36.3 Deg C (05/06/22 9:52 AM) Temperature Temporal Artery (DegF) [97.3-100 Deg F] 96.44 Deg F *LOW* (05/06/22 6:50 PM) Peripheral Pulse Rate [60-100 bpm] 51 bpm *LOW* (05/06/22 6:50 PM) 66 bpm (05/06/22 6:00 PM) 57 bpm *LOW* (05/06/22 5:45 PM) Heart Rate Monitored [60-100 bpm] 62 bpm (05/06/22 6:00 PM) 62 bpm (05/06/22 5:45 PM) 76 bpm (05/06/22 5:30 PM) Respiratory Rate [12-24 br/min] 14 br/min (05/06/22 6:50 PM) 14 br/min (05/06/22 6:00 PM) 10 br/min *LOW* (05/06/22 5:45 PM) Blood Pressure [90-140/60-90 mmHg] 122/67mmHg (05/06/22 6:50 PM) 99/62mmHg (05/06/22 6:00 PM) 112/63mmHg (05/06/22 5:45 PM) Mean Arterial Pressure, Cuff [65-140 mmHg] 85 mmHg (05/06/22 6:50 PM) 74 mmHg (05/06/22 6:00 PM) 79 mmHg (05/06/22 5:45 PM) Mean Arterial Pressure Cuff 75 mmHg (05/06/22 6:00 PM) 77 mmHg (05/06/22 5:45 PM) 85 mmHg (05/06/22 5:30 PM) Weight 81.650 kg (04/29/22 8:25 AM) Weight Dosing 81.650 kg (04/29/22 8:25 AM) Height 190.500 cm (04/29/22 8:25 AM) Height/Length Dosing 190.500 cm (04/29/22 8:25 AM) Social History Social History Type Response Tobacco Current everyday tob acco user Tobacco Use:. 1 cigarette per day per day. Sex Male XR Pelvis and Hip - right Views * Alon Lopez MD: VERIFY, VERIFY Event Display: Report PROCEDURE INFORMATION: Exam: XR Right Hip Exam date and time: 05/06/2022 3:02 PM Age: 67 years old Clinical indication: Screening exam; Post-op apryl; Prior surgery; Surgery date: Post-operative (0-2 days); Additional info: Right atha TECHNIQUE: Imaging protocol: Radiologic exam of the Right hip. Views: 2 or 3 views hip with pelvis when performed. COMPARISON: CR XR HIP RIGHT W PELVIS 05/06/2022 1:53 PM FINDINGS: Bones/joints: Unremarkable postoperative appearance of the right hip in the setting of arthroplasty. Anatomic alignment. Soft tissues: Postoperative subcutaneous emphysema.
--- OUTSIDE RECORDS SUMMARY | 2022-10-07 14:17 | XMS_ITS | Continuity of Care Document ---
Author Name Unknown Organization [facility] Address [address] [place] [address] Encounter [facility] NBR [id number] Date(s): 06/26/22 - 06/26/[address] [address] Discharge Disposition: Home or Self Care Attending Physician: Phuc Nunez DO Admitting Physician: Phuc Nunez DO Referring Physician: Phuc Nunez DO Allergies, Adverse Reactions, Alerts Substance Reaction Severity Status penicillin as child Moderate Active penicillins Severe Active Medications !-[place] 5 mg-325 mg oral tablet See Instructions, PRN as needed for pain, 1 -2 tab Oral every 4 hr, # 50 cap, 0 Refill(s), Pharmacy: [id number], 190.5, cm, 04/29/22 8:31:00 EST, Height/Length [...] BID, # 28 cap, 0 Refill(s), Pharmacy: [facility], 190.5, cm, 04/29/22 8:31:00 EST, Height/Length Dosing, 81.65, kg, 04/29/22 8:31:00 EST, Weight Dosing Start Date: 05/06/22 Stop Date: 05/20/22 Status: Ordered Ecotrin 325 mg oral delayed release tablet 325 mg = 1 tab, Oral, BID, # 84 tab, 0 Refill(s), Pharmacy: [facility], 190.5, cm, 04/29/22 8:31:00 EST, [...] Daily, # 238 g, 0 Refill(s), Pharmacy: [facility], 190.5, cm, 04/29/22 8:31:00 EST, Height/Length Dosing, 81.65, kg, 04/29/22 8:31:00 EST, Weight Dosing Start Date: 05/06/22 Status: Ordered [id number] oral powder for reconstitution 238 unknown unit, 0 Refill(s) Start Date: 05/22/22 Status: Ordered Tylenol 8 HR Arthritis Pain 650 mg oral tablet, extended release 650 mg = 1 tab, Oral, every 8 hr, # 50 tab, 0 Refill(s), Pharmacy: [facility], 190.5, cm, 04/29/22 8:31:00 EST, [...] Exam Date Time Procedure Performing Provider Status 06/26/22 12:14 PM XR Hip 2-3 Views w/A P Pelvis Right DomainUser, Generated; Auth (Verified) Notes: (XR Hip 2-3 Views w/AP Pelvis Right) Reason For Exam: f/u MARISELA XR Hip 2-3 Views w/AP Pelvis Right EXAM DESCRIPTION: XR Hip 2-3 Views w/AP Pelvis Right 06/26/2022 INDICATION: F/U MARISELA TECHNIQUE: Pelvis and right hip, three views COMPARISON: 05/06/2022 IMPRESSION: Status post right hip arthroplasty with stable satisfactory appearance. No focal lytic or destructive changes to suggest loosening or infection No acute fracture or dislocation. SI joints appear symmetric and pubic symphysis appears intact. Spondylotic changes in the visualized lower lumbar spine. JOB #: [id number] Final Signed by: Joe Prakash MD Signed (Electronic Signature): 06/26/2022 12:19 pm Social History Social History Type Response Tobacco Current everyday tob acco user Tobacco Use:. 1 cigarette per day per day. Sex Male Implantable Device List Procedure Provider Procedure Date Device Type Site Arthroplasty, acetabular and proximal femoral prosthetic replacement (total hip arthroplasty), with or without autograft or allograft Phuc Mayra, DO 05/06/22 Non Biological Hip R Device Identifier Serial Number Lot or Batch Number Manufacturing Date Expiration Date Distinct Identification Code MRI Safety Implantable Status Assigning Authority Unknown Unknown [id number] Unknown 08/11/30 Unknown Unknown Active Unknown Unknown Unknown [id number] Unknown 02/06/27 Unknown Unknown Active Unknown Unknown Unknown [id number] Unknown 10/14/31 Unknown Unknown Active Unknown Unknown Unknown [id number] Unknown Unknown Unknown Unknown Active Unk nown XR Pelvis and Hip - right Views * Joe Prakash MD: VERIFY, VERIFY Event Display: Report EXAM DESCRIPTION: XR Hip 2-3 Views w/AP Pelvis Right 06/26/2022 INDICATION: F/U MARISELA TECHNIQUE: Pelvis and right hip, three views COMPARISON: 05/06/2022 IMPRESSION: Status post right hip arthroplasty with stable satisfactory appearance. No focal lytic or destructive changes to suggest loosening or infection No acute fracture or dislocation. SI joints appear symmetric and pubic symphysis appears intact. Spondylotic changes in the visualized lower lumbar spine. JOB #: [id number] Final Signed by: Joe Prakash MD Signed (Electronic Signature): 06/26/2022 12:19 pm
--- OUTSIDE RECORDS SUMMARY | 2022-10-07 14:18 | XMS_ITS | Continuity of Care Document ---
Author Name Unknown Organization [facility] Address [address] [place] [address] Encounter [facility] NBR [id number] Date(s): 05/01/22 - 05/01/22 [facility] [address] [place] [address]- Discharge Disposition: Home or Self Care Attending Physician: Julianna Nunez APRN Admitting Physician: Julianna Nunez APRN Allergies, Adverse Reactions, Alerts Substance Reaction Severity Status penicillins Severe Active Assessment and Plan Future Appointments Problem List Condition Confirmation Course Effective Dates Status Health St atus Informant Colonic polyp Confirmed Active Dentures 1 Confirmed Active Headache Confirmed Active Heart murmur Confirmed Active History of COVID-19 2 Confirmed Active Numbness of foot 3 Confirmed Active 1pt with upper and lower dentures 2mild sx's 3bilat Procedures Procedure Date Related Diagnosis Body Site Status Arthroplasty of right shoulder Completed Colonoscopy Completed Dental operation Complete d Results Laboratory List Name Date Automated Diff 05/01/22 CBC w/ Diff 05/01/22 ABO/Rh Echo 05/01/22 ABSC Echo 05/01/22 Basic Metabolic Panel 05/01/22 Staph Nasal Complete (GeneXpert) 2 Urinalysis with Micro if Indicated and C ulture if Indicated 05/01/22 Most recent to oldest [Reference Range]: 1 WBC [4.8-10.8 K/mcL] 7.0 K/mcL (05/01/22 10:08 AM) RBC [4.20-6.10 Million/mcL] 4.29 Million /mcL (05/01/22 10:08 AM) Neutro Auto [42.2-75.2 %] 61.6 % (05/01/22 10:08 AM) Lymph Auto [20.5-51.1 %] 27.2 % (05/01/22 10:08 AM) [place] Auto [1.7-9.3 %] 8.8 % (05/01/22 10:08 AM) Basophil Auto [0.0-0.8 %] 1.0 % *HI* (05/01/22 10:08 AM) BUN [8-26 mg/dL] 20 mg/dL (05/01/22 10:07 AM) UA Color [Yellow] Yellow (05/01/22: AM) Glucose Level [74-106 mg/dL] 87 mg/dL (05/01/22 10:07 AM) Potassium Level [3.5-5.1 mmol/L] 4.1 mmo l/L (05/01/22: AM) Baso Absolute [0.0-0.2 K/mcL] 0.1 K/mcL (05/01/22:08 AM) MCV [80.0-99.0 fL] 91.6 fL (05/01/22: AM) UA Urobilinogen [0.2] 0.2 (05/01/22: AM) UA Bili [Negative] Negative (05/01/22 10:07 AM) UA Ketones [Negative] Negative (05/01/22: AM) MCHC [32.0-36.0 g/dL] 32.8 g/dL (05/01/22:08 AM) Osmolality [275-295 mOsm/kg] 270 mOsm/kg *LOW* (05/01/22:) Sodium Level [134-143 mmol/L] 134 mmol/L (05/01/22 10:07 AM) UA Leuk Est [Negative] Negative (05/01/22: AM) Lymph Absolute [1.2-3.4 K/mcL] 1.9 K/mcL (05/01/22:08 AM) UA Nitrite [Negative] Negative (05/01/22:07 AM) UA Glucose [Negative] Negative (05/01/22:07 AM) Hct [37.0-52.0 %] 39.3 % (05/01/22 10:08 AM) Calcium Level [8.9-10.3 mg/dL] 9.3 mg/dL (05/01/22 10:07 AM) [place] Absolute [0.1-0.6 K/mcL] 0.6 K/mcL (05/01/22 10:08 AM) UA Protein [Negative] Negative (05/01/22 10:07 AM) MCH [27.0-31.0 pg] 30.1 pg (05/01/22 10:08 AM) Neutro Absolute [1.4-6.5 K/mcL] 4.3 K/mc L (05/01/22 10:08 AM) Hgb [12.0-18.0 g/dL] 12.9 g/dL (05/01/22 10:08 AM) UA Blood [Negative] Negative (05/01/22: AM) MPV [7.4-10.4 fL] 10.3 fL (05/01/22 10:08 AM) UA Spec Grav 1.010 *NA* (05/01/22: AM) Platelets [130-400 K/mcL] 259 K/mcL (05/01/22 10:08 AM) CO2 [22-32 mmol/L] 28 mmol/L (05/01/22 10:07 AM) Eos Absolute [0.0-0.2 K/mcL] 0.1 K/mcL (05/01/22 10:08 AM) UA pH 6.00 *NA* (05/01/22 10:07 AM) eGFR Non-AA 92 *NA* (05/01/22 10:07 AM) eGFR AA 92 *NA* (05/01/22 10:07 AM) UA Appear [Clear] Clear (05/01/22:07 AM) Chloride Level [98-111 mmol/L] 99 mmol/L (05/01/22 10:07 AM) RDW-CV [11.5-14.5 %] 14.1 % (05/01/22 10:08 AM) BUN/Creat Ratio [8.0-20.0] 22.0 *HI* (05/01/22 10:07 AM) Imm Gran Absolute 0.01 *NA* (05/01/22 10:08 AM) Imm Gran Auto [0.0-0.5 %] 0.1 % (05/01/22 10:08 AM) NRBC Auto 0 *NA* (05/01/22 10:08 AM) MRSA Screen -GeneXpert [Negative] Negati ve (05/01/22 10:07 AM) NRBC Absolute 0 *NA* (05/01/22 10:08 AM) Urine Srce Clean Catch (05/01/22 10:07 AM) MSSA Screen -GeneXpert [Negative] Negati ve (05/01/22 10:07 AM) Creatinine Level [0.61-1.24 mg/dL] 0.91 mg/dL (05/01/22 10:07 AM) ABO/Rh Echo B POS *Unknown* (05/01/22 10:07 AM) Anion Gap [3.0-12.0] 7.0 (05/01/22 10:07 AM) Eos, Auto [0.00-3.00 %] 1.30 % (05/01/22 10:08 AM) ABSC Echo Negative ABSC (05/01/22 10:07 AM) Social History Social History Type Response Tobacco Current everyday tob acco user Tobacco Use:. 1 cigarette per day per day. Sex Male
== END 2022-10-07 14:34 ==
LOC: DI 14:14
PROVIDERS: PCP Nurse Practitioner Family; Visit Provider Nurse Practitioner Family
DX: M25.561 Pain in right knee (principal); M25.562 Pain in left knee
CPT/HCPCS: 73562

== ENCOUNTER 2022-11-12 04:17 | Outpatient (CLI) | payer MEDICAID, SELFPAY ==
[2022-11-13 08:41] LABS: PSA, Diagnostic 10.2 ng/mL (<=4.5)
== END 2022-11-12 04:18 | disposition home or self-care (01) ==
LOC: LBO 04:18
PROVIDERS: PCP Nurse Practitioner Family; Visit Provider Urology
DX: C61 Malignant neoplasm of prostate (principal)
CPT/HCPCS: 36415; 84153

== ENCOUNTER 2023-03-05 13:51 | Outpatient (REF) | payer MEDICAID, SELFPAY ==
[2023-03-05 17:52] LABS: Abs Immature Grans 0.02 10^3/uL (0.0-0.06); Absolute Basophil Count 0.07 10^3/uL (0.0-0.2); Absolute Eosinophil Count 0.14 10^3/uL (0.0-0.7); Absolute Lymphocyte Count 1.89 10^3/uL (1.2-3.4); Absolute Monocyte Count 0.69 10^3/uL (0.1-0.8); Absolute Neutrophil Count 5.42 10^3/uL (1.2-6.7); Basophils % 0.9; Eosinophils % 1.7; HGB 13.1 g/dL (13.5-17.5); Immature Grans % 0.2; MCHC 33.6 % (32.0-36.0); MCV 89 fL (80-95); Monocytes % 8.4; Neutrophils % 65.8; Platelet Count 331 10^3/uL (130-400); RBC 4.36 10^6/uL (4.36-5.78); RDW 14.8 % (11.8-14.1); RDW-SD 48.7 fL; WBC 8.23 10^3/uL (4.4-10.8)
[2023-03-05 18:25] LABS: ALT 52 U/L (16-63); AST 33 U/L (15-37); Albumin 3.8 g/dL (3.4-5.0); Alkaline Phosphatase 89 U/L (46-116); Anion Gap 7.5 mmol/L (3-11); BUN 21 mg/dL (7-18); Bilirubin, Total 0.4 mg/dL (0.2-1.0); CO2 27.5 mmol/L (21.0-32.0); CREATININE 1.1 mg/dL (0.70-1.30); Calcium 9.5 mg/dL (8.5-10.1); Chloride 99 mmol/L (98-107); Estimated GFR 73.58 (mL/min/1.73m2); Glucose 94 mg/dL (74-106); Potassium 4.8 mmol/L (3.5-5.1); Sodium 134 mmol/L (136-145); Total Protein 7.9 g/dL (6.4-8.2)
[2023-03-06 19:56] LABS: PSA, Diagnostic 11.4 ng/mL (<=4.5)
== END 2023-03-05 13:52 | disposition home or self-care (01) ==
LOC: NCHCN 13:51
PROVIDERS: PCP Nurse Practitioner Family; Visit Provider Nurse Practitioner Family
DX: R53.83 Other fatigue (principal); C61 Malignant neoplasm of prostate
CPT/HCPCS: 80053; 84153; 85025

== ENCOUNTER 2023-05-23 14:35 | Outpatient (CLI) | payer MEDICAID, SELFPAY ==
[2023-05-23 21:41] LABS: PSA, Diagnostic 9.7 ng/mL (<=4.5)
== END 2023-05-23 14:36 | disposition home or self-care (01) ==
LOC: LBO 14:35
PROVIDERS: PCP Nurse Practitioner Family; Visit Provider Urology
DX: C61 Malignant neoplasm of prostate (principal)
CPT/HCPCS: 36415; 84153

== ENCOUNTER 2024-01-22 01:49 | Outpatient (CLI) | payer MEDICARE, MEDICAID, SELFPAY ==
[2024-01-22 23:00] LABS: PSA, Diagnostic 9.9 ng/mL (<=4.5)
== END 2024-01-22 01:50 | disposition home or self-care (01) ==
LOC: LBO 01:50
PROVIDERS: PCP Nurse Practitioner Family; Visit Provider Urology
DX: C61 Malignant neoplasm of prostate (principal)
CPT/HCPCS: 36415; 84153

== ENCOUNTER → 2024-01-29 14:55 | Outpatient (BNVA) | payer MEDICARE, MEDICAID, SELFPAY | PROVIDERS: PCP Nurse Practitioner Family; Referring Provider Nurse Practitioner Family; Visit Provider Urology | DX: C61 Malignant neoplasm of prostate (principal) | CPT/HCPCS: 99213 ==

== ENCOUNTER 2024-07-28 04:08 | Outpatient (CLI) | payer MEDICARE, MEDICAID, SELFPAY ==
[2024-07-28 21:58] LABS: PSA, Diagnostic 9.3 ng/mL (<=4.5)
== END 2024-07-28 04:09 | disposition home or self-care (01) ==
LOC: LBO 04:09
PROVIDERS: PCP Nurse Practitioner Family; Visit Provider Urology
DX: C61 Malignant neoplasm of prostate (principal)
CPT/HCPCS: 36415; 84153

== ENCOUNTER → 2024-08-10 09:23 | Outpatient (BNVA) | payer MEDICARE, MEDICAID, SELFPAY | PROVIDERS: PCP Nurse Practitioner Family; Referring Provider Nurse Practitioner Family; Visit Provider Urology | DX: R97.20 Elevated prostate specific antigen [PSA] (principal); C61 Malignant neoplasm of prostate | CPT/HCPCS: 99213 ==

== ENCOUNTER 2025-01-11 13:25 | Outpatient (CLI) | payer MEDICARE, MEDICAID, SELFPAY ==
--- NOTE | 2025-01-11 | DI.RAD_ITS ---
Exam(s) XR SHOULDER LT COMPLETE 2+V EXAM: XR SHOULDER LT COMPLETE 2+V CLINICAL HISTORY: Pain in Lt shoulder, M25.512. TECHNIQUE: 2D digital imaging was performed. Three views. COMPARISON: No exams were available for comparison FINDINGS: BONES: No acute fracture is present. No bony destructive lesion is seen. Degenerative cysts in the humeral head. JOINTS: No dislocation present. Glenohumeral joint space is maintained. Minimal periarticular spurring. Mild degenerative changes of the AC joint. SOFT TISSUE: Normal. IMPRESSION: Mild degenerative changes. DATA REPOSITORY: RADIATION DOSE DELIVERED:
== END 2025-01-11 13:45 ==
PROVIDERS: PCP Nurse Practitioner Family; Visit Provider Family Medicine
DX: M25.512 Pain in left shoulder (principal)
CPT/HCPCS: 73030

== ENCOUNTER 2025-03-01 03:48 | Outpatient (CLI) | payer MEDICARE, MEDICAID, SELFPAY ==
[2025-03-01 22:22] LABS: PSA, Diagnostic 10.7 ng/mL (<=4.5)
== END 2025-03-01 03:49 | disposition home or self-care (01) ==
LOC: LBO 03:48
PROVIDERS: PCP Nurse Practitioner Family; Visit Provider Urology
DX: C61 Malignant neoplasm of prostate (principal)
CPT/HCPCS: 36415; 84153

== ENCOUNTER → 2025-03-08 10:33 | Outpatient (BNVA) | payer MEDICARE, MEDICAID, SELFPAY | PROVIDERS: PCP Nurse Practitioner Family; Visit Provider Nurse Practitioner Gerontology | DX: C61 Malignant neoplasm of prostate (principal); R97.20 Elevated prostate specific antigen [PSA] | CPT/HCPCS: 99213 ==